=== PATIENT | male | born 1950 | race Caucasian/White ===

== ENCOUNTER 2023-11-05 09:00 | Day surgery (SDC) | payer OTHER ==
[2023-11-05 09:49] VITALS: BMI 28.8
[2023-11-05 09:49] LABS: Absolute Eosinophils 0.2 K/uL (0-0.5); Absolute Lymphocytes (CBC) 1.6 K/uL (0.7-4.9); Absolute Monocytes 0.4 K/uL (0.1-1.3); Absolute Neutrophil 3.7 K/uL (1.8-8.0); Basophils % 0.8 % (0-1.3); Hematocrit 41.7 % (39.6-49.0); Hemoglobin 13.9 g/dL (13.6-17.9); Lymphocytes % 26.4 % (15.3-44.8); MCH 28.8 pg (27.0-35.0); MCHC 33.3 g/dL (32.0-36.0); MCV 86.4 fL (80-100); MPV 8.5 fL (7.6-11.3); Monocytes % 6.8 % (3.3-12.3); Platelets 168 thou/uL (152-406); RBC Red Blood Cell Count 4.83 M/uL (4.33-5.43); Red Cell Distribution Width 13.5 % (12.1-15.2)
[2023-11-05 09:56] LABS: PT Prothrombin Time 12.4 SECONDS (9.4-12.5); PTT, Activated Partial Thromb 37.1 SECONDS (24.3-36.9); Protime INR 1.11
[2023-11-05 09:59] LABS: Albumin 3.9 g/dL (3.4-5.0); Albumin/Globulin Ratio 1.2 (1.1-1.8); Anion Gap 9.6 mEq/L (5.0-15.0); Bilirubin Direct 0.2 mg/dL (0-0.2); Bilirubin Indirect, Calculated 0.6 mg/dL (0.2-0.8); Bilirubin Total 0.8 mg/dL (0.2-1.0); Globulin 3.3 g/dL (2.3-3.5); Potassium 3.6 mEq/L (3.5-5.1); Protein, Total 7.2 g/dL (6.4-8.2)
--- NOTE | 2023-11-05 12:05 | RAD REPORT ---
EXAM DESCRIPTION: RAD - Lumbar Puncture For Dx - 11/05/2023 11:51 am CLINICAL HISTORY: DEMENTIA Headache COMPARISON: No comparisons TECHNIQUE: The procedure, risks and alternatives to the procedure were discussed with the patient in detail. After answering all questions, both oral and written consent were obtained. Time-out procedu re was performed. The patient was placed in an oblique prone position on the fluoroscopic table. The skin of the lower back was prepped and draped in the usual sterile fashion. After anesthetizing the skin and deeper sof t tissues with 1% lidocaine, a 22 gauge needle was advanced into the thecal sac at the L4-5 level. Approximately 11-12 cc of clear CSF was obtained. At the conclusion of the procedure the needle was withdrawn and a sterile bandage placed over the pun cture site. The patient tolerated the procedure well without immediate complications. Total fluoro time: 1 minutes Images obtained: 2 IMPRESSION: Successful fluoroscopic guided lumbar puncture. All obtained fluid was sent to the lab f or studies requested by the referring physician.
[2023-11-05 12:58] LABS: CSF Glucose 61 mg/dL (40-70)
[2023-11-05 13:22] VITALS: BP 126/76; TEMP 97.3; O2SAT 100
[2023-11-05 13:46] LABS: Appearance CLEAR (CLEAR); Body Fluid Source CSF; Color of Supernate Not Xanthochromic (Not Xantho); Color of fluid Colorless (COLORLESS); Fluid Total Volume 10 ml; Tube # #4
[2023-11-05 13:47] LABS: Body Fluid WBC 0 /mm^3
== END 2023-11-05 13:25 | disposition home or self-care (01) ==
LOC: RAD 09:00 → DS 13:25
PROVIDERS: ATTEND Psychiatry & Neurology Neurology with Special Qualifications in Child Neurology
PROC: 00JU3ZZ Inspection of Spinal Canal, Percutaneous Approach (ICD-10-PCS; principal; 2023-11-05)
DX: F03.90 Unspecified dementia, unspecified severity, without behavioral disturbance, psychotic disturbance, mood disturbance, and anxiety (principal); R79.89 Other specified abnormal findings of blood chemistry; E53.8 Deficiency of other specified B group vitamins; E55.9 Vitamin D deficiency, unspecified; I10 Essential (primary) hypertension; E78.5 Hyperlipidemia, unspecified
CPT/HCPCS: 36415; 62328; 77003; 80048; 80076; 82542; 82945; 84157; 85025; 85610; 85730; 89050